=== PATIENT | female | born 1940 | race Caucasian/White ===

== ENCOUNTER → 2021-01-25 | Outpatient (CLI) | payer MEDICARE ==
[~2021-01-25] MED LIST: AZIT250 PO; BONTRIL; CALCIT950 PO; CLIN300 PO; DIAZ10 PO; DIAZ5; DIAZ5 PO; FERSU300 PO; FLUO10 PO; FLUO20; HYDACE5 PO; HYDCHL25; HYDCHL25 PO; HYDMOR2 PO; HYOS.125; Hair, Skin & N1 EACH PO; OMEP20ER; OMEP20ER PO; POTCHL10ER PO; [UNRECOGNIZED DRUG - OTHER]
== END ==
LOC: PLD 12:09 → LAB SHORT 12:09
DX: D48.5 Neoplasm of uncertain behavior of skin (principal); Z88.1 Allergy status to other antibiotic agents; Z88.5 Allergy status to narcotic agent
CPT/HCPCS: 88305

== ENCOUNTER 2022-12-09 06:31 | Observation (INO) | payer OTHER ==
[~2022-12-09] VITALS: Ht 157.5 cm; Wt 63.5 kg
[~2022-12-09 06:31] MED LIST changes: +Alphagan P5 ML BOTHEYES; +B-12500 MC2 PO; -DIAZ5 PO; +ESCI20 PO; +EUTHYROX100 MCG PO; +THERA-D2000 UNIT PO
[2022-12-09 06:51] LABS: BASOPHILS ABSOLUTE AUTO 0.04 K/mm3 (0.00-0.23); BASOPHILS PERCENT AUTO 1 % (0-2); EOSINOPHILS ABSOLUTE AUTO 0.26 K/mm3 (0.00-0.68); EOSINOPHILS PERCENT AUTO 5 % (0-6); Hematocrit 35.9 % (33.0-51.0); Hemoglobin 12.5 g/dL (11.5-16.0); IMMATURE GRAN ABSOLUTE AUTO 0.02 K/mm3 (0.00-0.10); IMMATURE GRAN PERCENT AUTO 0 % (0-1); LYMPHOCYTES ABSOLUTE AUTO 1.98 K/mm3 (0.84-5.20); LYMPHOCYTES PERCENT AUTO 39 % (21-46); MONOCYTES ABSOLUTE AUTO 0.36 K/mm3 (0.16-1.47); MONOCYTES PERCENT AUTO 7 % (4-13); Mean Corpuscular HGB 32.9 pg (26.0-34.0); Mean Corpuscular HGB Conc 34.8 g/dL (31.5-36.5); Mean Corpuscular Volume 95 fL (80-100); Mean Platelet Volume 9.2 fL (9.1-12.4); NEUTROPHILS ABSOLUTE AUTO 2.44 K/mm3 (1.96-9.15); NEUTROPHILS PERCENT AUTO 48 % (41-73); Platelet Count 268 K/mm3 (150-400); RDW Coefficient Variation 13.1 % (11.7-14.2); RDW Standard Deviation 45.2 fL (35.1-46.3)
[2022-12-09 07:12] LABS: Albumin, Blood 3.3 g/dL (3.4-5.0); Bilirubin, Total 0.3 mg/dL (0.1-1.0); Bun/Creatinine Ratio 14.2 (12.0-20.0); Calcium, Blood 8.9 mg/dL (8.5-10.1); Creatinine, Blood 0.63 mg/dL (0.40-1.00); Globulin, Blood 3.3 g/dL (2.2-4.0); Potassium, Blood 3.4 mmol/L (3.5-5.5); Total Protein, Blood 6.6 g/dL (6.4-8.2)
--- NOTE | 2022-12-09 10:47 | NUR ---
Echocardiogram performed.
--- NOTE | 2022-12-09 12:20 | NUR ---
PT ARRIVED TO UNIT IND TO BATHROOM, AWAITING TELE AT THIS TIME. PT DENIES CP AT THIS TIME.
--- NOTE | 2022-12-09 18:14 | NUR ---
SHIFT SUMMARY PT A&OX4 AND IN PLEASENT MOOD SINCE ARRIVAL TO UNIT. VSS. TOLERATING PO INTAKE WELL. PLAN FOR NO CAFFIENE AFTER 1999, NPO EXCEPT SIPS AND CHIPS AFTER MIDNIGHT FOR PLANNED 1 DAY STESS TEST TOMORROW. FAMILY IN TO SEE PT T/O STAY HERE. DENIES CP. TELE IN PLACE SINUS RYTHYM. PT C/O DAUGHTER YESTERDAY FROM [place] UNDER GREAT AMOUNT OF STRESS. REPORTS OF NEEDS TO DC BY MONDAY.
[2022-12-09] MEDS ORDERED: LATANOPROST2.5 M3 BOTHEYES (19:45)
--- NOTE | 2022-12-10 14:55 | NUR ---
DISCHARGE SUMMARY DISCHARGE, FOLLOWUP, AND MEDICATION INSTRUCTIONS GIVEN TO PT. PT VOICED COMPLETE UNDERSTANDING AND HAS NO QUESTIONS AT THIS TIME. IV REMOVED WITH CATHETER TIP INTACT. PT AWAITING RIDE ARRIVAL. WILL CONTINUE TO MONITOR. CALL LIGHT WITHIN REACH.
== END 2022-12-10 15:30 | disposition home or self-care (01) ==
LOC: ER 06:31 → MEDS 06:32 → ENPENDDIS 12-10 13:56 → MEDS 12-10 15:30
PROVIDERS: Emergency Medicine; ADMIT Hospitalist
DX: R07.89 Other chest pain (principal); I10 Essential (primary) hypertension; E03.9 Hypothyroidism, unspecified; K21.9 Gastro-esophageal reflux disease without esophagitis; F41.9 Anxiety disorder, unspecified; F43.0 Acute stress reaction; Z79.899 Other long term (current) drug therapy; Z88.8 Allergy status to other drugs, medicaments and biological substances
CPT/HCPCS: 71046; 78452; 80053; 83880; 84484; 85025; 93005; 93010; 93017; 93306; 99285-25; A9270; A9500; J0706; J1650; J2785

== ENCOUNTER 2023-10-03 07:46 | Day surgery (SDC) | payer OTHER ==
[~2023-10-03] VITALS: Ht 154.9 cm; Wt 65.1 kg
[2023-10-03] VITALS (15 sets, daily range): BP systolic 91–157; BP diastolic 46–88
[~2023-10-03 07:46] MED LIST changes: +LATANOPROST2.5 M3 BOTHEYES
--- NOTE | 2023-10-03 12:17 | NUR ---
ARRIVAL TO SURGICAL UNIT VIA HOSPITAL BED. PLEASANT BUT DROWSY. ASSESSMENT CHARTED. UNABLE TO MOVE OR FEEL BLE R/T SPINAL. DENIES N/V BUT DECLINES SIPS OF WATER OR SNACKS DUE TO FEELING TIRED. JUST WANTS TO REST.
--- NOTE | 2023-10-03 18:53 | NUR ---
SHIFT SUMMARY PT HAS DONE WELL POST OP. WAS INITIALLY DROWSY BUT BECAME ALERT. AFTER SPINAL WORE OFF, UP TO CHAIR FOR DINNER. EATING, DRINKING, & VOIDING. PLEASANT & COOPERATIVE. PAIN REASONABLY MANAGED.
--- NOTE | 2023-10-03 19:28 | NUR ---
SHIFT SUMMARY PT HAS DONE WELL POST OP. WAS INITIALLY DROWSY BUT BECAME ALERT. AFTER SPINAL WORE OFF, UP TO CHAIR FOR DINNER. AFTER DINNER TO BATHROOM WHERE SHE DID HAVE A "DIZZYSPELL" SHE REPORTS THESE HAPPEN AT HOME TOO & SHE USUALLY SITS OR LIES ON THE FLOOR UNTIL IT PASSES. EATING, DRINKING, & VOIDING. PLEASANT & COOPERATIVE. PAIN REASONABLY MANAGED.
[2023-10-04 00:34] VITALS: BP 128/48
[2023-10-04 03:41] VITALS: BP 134/61
[2023-10-04 04:55] LABS: BASOPHILS ABSOLUTE AUTO 0.01 K/mm3 (0.00-0.23); BASOPHILS PERCENT AUTO 0 % (0-2); EOSINOPHILS PERCENT AUTO 0 % (0-6); Hematocrit 27.3 % (33.0-51.0); Hemoglobin 9.2 g/dL (11.5-16.0); IMMATURE GRAN ABSOLUTE AUTO 0.07 K/mm3 (0.00-0.10); IMMATURE GRAN PERCENT AUTO 1 % (0-1); LYMPHOCYTES ABSOLUTE AUTO 0.74 K/mm3 (0.84-5.20); LYMPHOCYTES PERCENT AUTO 6 % (21-46); MONOCYTES ABSOLUTE AUTO 0.95 K/mm3 (0.16-1.47); MONOCYTES PERCENT AUTO 7 % (4-13); Mean Corpuscular HGB 32.2 pg (26.0-34.0); Mean Corpuscular HGB Conc 33.7 g/dL (31.5-36.5); Mean Corpuscular Volume 96 fL (80-100); Mean Platelet Volume 9.6 fL (9.1-12.4); NEUTROPHILS ABSOLUTE AUTO 11.58 K/mm3 (1.96-9.15); NEUTROPHILS PERCENT AUTO 87 % (41-73); Platelet Count 211 K/mm3 (150-400); RDW Coefficient Variation 13.1 % (11.7-14.2); RDW Standard Deviation 45.4 fL (35.1-46.3); Red Blood Cell Count 2.86 M/mm3 (3.80-5.20); White Blood Cell Count 13.35 K/mm3 (4.00-11.30)
[2023-10-04 05:16] LABS: Bun/Creatinine Ratio 25.5 (12.0-20.0); Calcium, Blood 7.9 mg/dL (8.5-10.1); Creatinine, Blood 0.82 mg/dL (0.40-1.00); Potassium, Blood 4.7 mmol/L (3.5-5.5)
--- NOTE | 2023-10-04 05:45 | NUR ---
SHIFT SUMMARY POD1 L RODDYMyra TIM IS C/D/I. SENSATION AND CIRCULATION REMAINS INTACT IN LLE. PT SLEPT ON AND OFF T/O THE NIGHT. MEDICATED FOR PAIN WITH PRN'S, GOOD RESULTS NOTED. PT AMBULATED TO THE BATHROOM MULTIPLE TIMES TO VOIPD. TOLLERATING PO INTAKE W/O N/V. PLAN TO WORK WITH PT TODA AND D/C HOME.
--- NOTE | 2023-10-04 07:16 | NUR ---
RECVD BEDSIDE REPORT FROMP RE[facility] SHIFT RN. PT A/O X 4, PLEASANT/COOEPRATIVE, SITTING UP IN CHAIR, CALL LIGHT WITHIN REACH.
[2023-10-04 08:02] VITALS: BP 140/52
--- NOTE | 2023-10-04 08:40 | NUR ---
PT PASSED PHYSICAL THERAPY, WILL BE DC HOME TODAY
[2023-10-04] MEDS ORDERED: Aspir 8181 MG PO (09:37)
[2023-10-04] MEDS ORDERED: Percocet 5-3251 EACH PO (09:38)
--- NOTE | 2023-10-04 11:41 | NUR ---
pt and son provided with discharge instructions and printed material; they both state understanding. Peripheral IV removed WNL. pt's belongings including cryo machine transported to awaiting vehicle by son. pt transported to vehicle via wheelchair
== END 2023-10-04 11:29 | disposition home or self-care (01) ==
LOC: ORSCMMR 07:46 → ORD 09:15 → ORSCMMR 09:15 → ORD 10:00 → SURS 12:15 → ORSCMMR 10-04 11:29
PROVIDERS: Orthopaedic Surgery
PROC: 0SRB0JA Replacement of Left Hip Joint with Synthetic Substitute, Uncemented, Open Approach (ICD-10-PCS; principal; 2023-10-03 09:15)
DX: M16.12 Unilateral primary osteoarthritis, left hip (principal); E03.9 Hypothyroidism, unspecified; F32.A Depression, unspecified; Z79.899 Other long term (current) drug therapy
CPT/HCPCS: 36415; 72170; 80048; 85025; 97110; 97116; 97162; 97530; A9270; C1776; J0171; J0690; J0735; J1100; J1885; J2250; J2405; J2704; J2795; J3010; J7120

== ENCOUNTER 2024-04-08 09:07 | Day surgery (SDC) | payer OTHER ==
[~2024-04-08 09:07] MED LIST changes: +Aspir 8181 MG PO; +Percocet 5-3251 EACH PO
[2024-04-10] MEDS ORDERED: Amoxicillin500 MG PO (12:39)
[2024-04-10] MEDS ORDERED: FLUOXETINE HCL20 MG PO (12:39)
[2024-04-10] MEDS ORDERED: [UNRECOGNIZED DRUG - OTHER] PO (12:40)
== END 2024-05-21 23:19 | disposition home or self-care (01) ==
LOC: MOI US 09:07
DX: C50.211 Malignant neoplasm of upper-inner quadrant of right female breast (principal)
CPT/HCPCS: 19285; 77065; A4648

== ENCOUNTER 2024-04-15 08:10 | Day surgery (SDC) | payer OTHER ==
[2024-04-15] VITALS (15 sets, daily range): BP systolic 114–183; BP diastolic 56–97
[~2024-04-15] VITALS: Ht 156 cm; Wt 65.5 kg
[~2024-04-15 08:10] MED LIST changes: +Amoxicillin500 MG PO; +FLUOXETINE HCL20 MG PO; +[UNRECOGNIZED DRUG - OTHER] PO
[2024-04-15] MEDS ORDERED: CeFAZolin Sodium 2,000 MG in NS 100 ML IV SCH (10:05)
[2024-04-15] MEDS ORDERED: Lactated Ringer's 1,000 ML IV SCH (10:05)
[2024-04-15] MEDS ORDERED: Bupivacaine 0.5% HCl 5 MG/ML 30MLVIAL ONE (10:34)
[2024-04-15] MEDS ORDERED: Methylene Blue 1% 100 MG/10 ML VIAL ONE (10:34)
[2024-04-15] MEDS ORDERED: FentaNYL Citrate 50 MCG/ML 2 ML Injection ONE ×3 (10:49→12:51)
[2024-04-15] MEDS ORDERED: propofoL 20 ML IV ONE (10:49)
[2024-04-15] MEDS ORDERED: Dexamethasone Sod Phos 10 MG/ML 1ML VIAL ONE (11:00)
--- NOTE | 2024-04-15 11:52 | NUR ---
04/15/24 1152 Juliette Ibrahim CALL FROM RADIOLOGY AT 1152: SPECIMEN LOOKS GOOD PER DR. ROGER.
[2024-04-15] MEDS ORDERED: Ondansetron HCl 2 MG / ML 2ML Vial ONE (11:56)
[2024-04-15] MEDS ORDERED: Ketorolac Tromethamine 30mg Vial ONE (12:27)
[2024-04-15] MEDS ORDERED: HYDROcodone 5-APAP 325 TAB PO PRN (12:30)
--- NOTE | 2024-04-15 13:47 | NUR ---
PT READY FOR DC HOME. TOLERATED JUICE AND CRACKERS, NORCO GIVEN, DRG C/D/I ICE TO ARMPIT, BREAST BINDER ON, SON AT BEDSIDE. Discharge instructions reviewed with patient. Patient verbalizes understanding. Copy given to patient to take home. Discharged via wheelchair to private car for ride home.
== END 2024-04-15 13:50 | disposition home or self-care (01) ==
LOC: NM 08:10 → ORSCMMR 08:10 → NM 09:00
PROVIDERS: Surgery
PROC: 0HBT0ZZ Excision of Right Breast, Open Approach (ICD-10-PCS; principal; 2024-04-15 10:00)
PROC: 07B50ZX Excision of Right Axillary Lymphatic, Open Approach, Diagnostic (ICD-10-PCS; principal; 2024-04-15 10:00)
DX: C50.211 Malignant neoplasm of upper-inner quadrant of right female breast (principal); D36.0 Benign neoplasm of lymph nodes; Z17.0 Estrogen receptor positive status [ER+]; E03.9 Hypothyroidism, unspecified; Z79.899 Other long term (current) drug therapy
CPT/HCPCS: 38792; 76098; 88307; 88342; A9270; A9520; J0690; J1100; J1885; J2405; J2704; J3010; J7120; Q9968

== ENCOUNTER 2024-04-24 07:51 | Day surgery (SDC) | payer OTHER ==
[~2024-04-24] VITALS: Ht 154.9 cm; Wt 64.6 kg
[~2024-04-24 07:51] MED LIST changes: +Lactated Ringer's 1,000 ML IV ONE; +Ropivacaine 0.5% HCL/PF 5 MG/ML 30ML Vial ONE
[2024-04-24] MEDS ORDERED: CeFAZolin Sodium 2,000 MG VIAL ONE (08:14)
[2024-04-24] MEDS ORDERED: NS 50 ML IV ONE (08:14)
[2024-04-24] MEDS ORDERED: Lactated Ringer's 1,000 ML IV ONE (08:46)
[2024-04-24] MEDS ORDERED: FentaNYL Citrate 50 MCG/ML 2 ML Injection ONE (09:17)
[2024-04-24] MEDS ORDERED: propofoL 20 ML IV ONE (09:17)
[2024-04-24] MEDS ORDERED: ePHEDrine Sulfate 50 MG/ML 1ML Injection ONE (10:04)
[2024-04-24] MEDS ORDERED: Dexamethasone Sod Phos 10 MG/ML 1ML VIAL ONE (10:10)
[2024-04-24] MEDS ORDERED: Ondansetron HCl 2 MG / ML 2ML Vial ONE (10:10)
--- NOTE | 2024-04-24 11:04 | NUR ---
04/24/24 1104 NITA VELÁZQUEZ HAD DIFF. WITH CORD TO PULSE OX. CHANGED OUT ENTIRE CORD AND NOW CAPTURING O2 SAT. PLACE PT ON 10L O2- CURRENTLY O2 SAT 99%, BARE HUGGER STARTED PT WAS CHILLED AND HANDS/FEET COLD
[2024-04-24 11:35] VITALS: BP 132/62
--- NOTE | 2024-04-24 11:38 | NUR ---
04/24/24 Barbara8 Tsering Vance PT'S VSS. PT UP TO CHAIR, HAVING FLUIDS AND SNACK. PT DENIED ANY PAIN OR DISCOMFORT. NO C/O NAUSEA. PT EDUCATION PROVIDED TO PT BY NITA GONG. ALL QUESTIONS/CONCERNS WERE ANSWERED/ADDRESSED. PT EDUCATION ON HOW TO TAKE CARE OF OLIVE DRAIN AND LEG EXERCISES TO PREVENT BLOOD CLOTS.
== END 2024-04-24 11:47 | disposition home or self-care (01) ==
LOC: ORSCSDS 07:51 → ORD 11:45 → ORSCSDS 11:45
PROVIDERS: Surgery
PROC: 0JC60ZZ Extirpation of Matter from Chest Subcutaneous Tissue and Fascia, Open Approach (ICD-10-PCS; principal; 2024-04-24 09:30)
DX: L76.32 Postprocedural hematoma of skin and subcutaneous tissue following other procedure (principal); C50.211 Malignant neoplasm of upper-inner quadrant of right female breast; Z17.0 Estrogen receptor positive status [ER+]; K21.9 Gastro-esophageal reflux disease without esophagitis; E03.9 Hypothyroidism, unspecified; Z79.899 Other long term (current) drug therapy; N64.89 Other specified disorders of breast
CPT/HCPCS: J0690; J1100; J2405; J2704; J2795; J3010; J7120

== ENCOUNTER → 2024-11-21 | Outpatient (CLI) | payer OTHER ==
[~2024-11-21] MED LIST changes: +Cipro500 MG PO; -Lactated Ringer's 1,000 ML IV ONE; -Ropivacaine 0.5% HCL/PF 5 MG/ML 30ML Vial ONE
== END ==
LOC: LAB 15:19 → LAB SHORT 15:19
DX: N39.0 Urinary tract infection, site not specified (principal)
CPT/HCPCS: 87077; 87086; 87186

== ENCOUNTER 2024-11-28 12:04 | Day surgery (SDC) | payer OTHER ==
[~2024-11-28] VITALS: Ht 154.9 cm; Wt 65.3 kg
[~2024-11-28 12:04] MED LIST changes: +Balanced Salt Epinephrine Irrigation Solution 500 mL IR SCH; -Cipro500 MG PO; +Lidocaine HCl/Pf 1% 5 ML VIAL XX SCH; +Moxifloxacin HCL 0.5 MG/0.1 ML 0.4MLSYR LEFTEYE SCH; +PHENYLEPHRINE\\TROPICAMIDE\\TETRACAINE OPHTHALMIC DILATING SOLN LEFTEYE PRN; +Povidone-Iodine 450 DROP/30 ML Solution LEFTEYE SCH; +Povidone-Iodine 450 DROP/30 ML Solution ONE; +Tetracaine HCl/Pf 0.5% Opth Soln 4 ml ONE; +Triamcinolone Inj Susp 40 MG / ML 1ML Vial INJ SCH; +Triamcinolone Inj Susp 40 MG / ML 1ML Vial ONE
[2024-11-28] MEDS ORDERED: Diazepam 2 MG Tab ONE (12:06)
[2024-11-28] MEDS ORDERED: Cipro500 MG PO (12:23)
[2024-11-28] MEDS ORDERED: Ondansetron HCl 2 MG / ML 2ML Vial ONE (12:41)
[2024-11-28 13:27] VITALS: BP 125/71
--- NOTE | 2024-11-28 13:53 | NUR ---
11/28/24 1353 Marylou Gupta D/C INSTRUCTIONS GIVEN TO PT, UNDERSTANDING VERBALIZED. DR. KWON VISITED W/ PT AT BEDSIDE & NOTIFIED OF F/U APPOINTMENT CHANGE. PT WILL F/U W/ DR. KWON TODAY AT APPROX 1400, PT VERBALIZED UNDERSTANDING. PT GIVEN EYE KIT, WHICH HAD PERSONAL GLASSES INSIDE. PT WHEELED TO PRIVATE VEHICLE, STEADY GAIT NOTED UPON TRANSFER FROM TO VEHICLE. PT HAS ALL BELONGINGS. NO VISIBLE SIGNS OF DISTRESS NOTED.
== END 2024-11-28 13:45 | disposition home or self-care (01) ==
LOC: ORSCSDS 12:04
PROVIDERS: Ophthalmology
PROC: 08933ZZ Drainage of Left Anterior Chamber, Percutaneous Approach (ICD-10-PCS; principal; 2024-11-28 13:30)
PROC: 08RK3JZ Replacement of Left Lens with Synthetic Substitute, Percutaneous Approach (ICD-10-PCS; principal; 2024-11-28 13:30)
DX: H25.813 Combined forms of age-related cataract, bilateral (principal); H21.81 Floppy iris syndrome; H40.1131 Primary open-angle glaucoma, bilateral, mild stage; Z87.891 Personal history of nicotine dependence; E03.9 Hypothyroidism, unspecified; F41.9 Anxiety disorder, unspecified; Z79.899 Other long term (current) drug therapy
CPT/HCPCS: A9270; J2405; J3301; V2632

== ENCOUNTER 2024-12-11 08:39 | Day surgery (SDC) | payer OTHER ==
[~2024-12-11] VITALS: Ht 154.9 cm; Wt 65.5 kg
[~2024-12-11 08:39] MED LIST changes: +Cipro500 MG PO; +Diazepam 2 MG Tab PO PRN; -Moxifloxacin HCL 0.5 MG/0.1 ML 0.4MLSYR LEFTEYE SCH; +Moxifloxacin HCL 0.5 MG/0.1 ML 0.4MLSYR RIGHTEYE SCH; +Ondansetron 4 MG SoluTab MM PRN; -PHENYLEPHRINE\\TROPICAMIDE\\TETRACAINE OPHTHALMIC DILATING SOLN LEFTEYE PRN; +PHENYLEPHRINE\\TROPICAMIDE\\TETRACAINE OPHTHALMIC DILATING SOLN RIGHTEYE PRN; -Povidone-Iodine 450 DROP/30 ML Solution LEFTEYE SCH; +Povidone-Iodine 450 DROP/30 ML Solution RIGHTEYE SCH; +diazePAM 2 MG,diazePAM 5 MG PO SCH
[2024-12-11] MEDS ORDERED: Diazepam 2 MG Tab ONE (08:48)
[2024-12-11] MEDS ORDERED: Diazepam 5 MG Tab ONE (08:48)
[2024-12-11] MEDS ORDERED: Amoxicillin500 MG PO (09:10)
[2024-12-11 10:15] VITALS: BP 126/78
== END 2024-12-11 10:29 | disposition home or self-care (01) ==
LOC: ORSCSDS 08:39
PROVIDERS: Ophthalmology
PROC: 08RJ3JZ Replacement of Right Lens with Synthetic Substitute, Percutaneous Approach (ICD-10-PCS; 2024-12-11)
PROC: 08923ZZ Drainage of Right Anterior Chamber, Percutaneous Approach (ICD-10-PCS; principal; 2024-12-11 10:00)
DX: H25.811 Combined forms of age-related cataract, right eye (principal); H40.1431 Capsular glaucoma with pseudoexfoliation of lens, bilateral, mild stage; Z96.1 Presence of intraocular lens; H35.30 Unspecified macular degeneration; E03.9 Hypothyroidism, unspecified; K21.9 Gastro-esophageal reflux disease without esophagitis; F41.9 Anxiety disorder, unspecified; Z79.899 Other long term (current) drug therapy
CPT/HCPCS: A9270; J3301; V2632

== ENCOUNTER → 2025-01-05 | Outpatient (CLI) | payer OTHER ==
[~2025-01-05] MED LIST changes: -Balanced Salt Epinephrine Irrigation Solution 500 mL IR SCH; -Diazepam 2 MG Tab PO PRN; -Lidocaine HCl/Pf 1% 5 ML VIAL XX SCH; -Moxifloxacin HCL 0.5 MG/0.1 ML 0.4MLSYR RIGHTEYE SCH; -Ondansetron 4 MG SoluTab MM PRN; -PHENYLEPHRINE\\TROPICAMIDE\\TETRACAINE OPHTHALMIC DILATING SOLN RIGHTEYE PRN; -Povidone-Iodine 450 DROP/30 ML Solution ONE; -Povidone-Iodine 450 DROP/30 ML Solution RIGHTEYE SCH; -Tetracaine HCl/Pf 0.5% Opth Soln 4 ml ONE; -Triamcinolone Inj Susp 40 MG / ML 1ML Vial INJ SCH; -Triamcinolone Inj Susp 40 MG / ML 1ML Vial ONE; -diazePAM 2 MG,diazePAM 5 MG PO SCH
== END ==
LOC: LAB SHORT 10:53 → LAB 10:53
DX: R30.0 Dysuria (principal)
CPT/HCPCS: 87086

== ENCOUNTER → 2025-01-09 | Outpatient (CLI) | payer OTHER | LOC: LAB SHORT 13:34 → LAB 13:34 | DX: N39.0 Urinary tract infection, site not specified (principal); R31.9 Hematuria, unspecified | CPT/HCPCS: 87086 ==